=== PATIENT | male | born 2000 | race Caucasian/White ===

== ENCOUNTER 2018-01-25 20:09 | Emergency (ER) | payer BC ==
[~2018-01-25] VITALS: Ht 177.8 cm; Wt 82.6 kg
[2018-01-25 20:27] VITALS: BP 141/73; PULSE 130; TEMP 36.9; O2SAT 98; Ht 177.8 cm; Wt 82.6 kg
--- NOTE | 2018-01-25 21:10 | DIAGNOSTIC IMAGING REPORT ---
L KNEE 3 VIEWS CLINICAL HISTORY: left knee injury COMPARISON: None FINDINGS: Alignment of the left knee is anatomic. Irregularity of the tibial tubercle with a few associated calcific/ossific densities is chronic. There is a small left knee joint effusion. There is no acute fracture. IMPRESSION: 1. No acute fracture. 2. Suspected small left knee joint effusion. 3. Irregularity of the tibial tubercle with a few adjacent calcific/ossific densities which is chronic. Electronically signed by: Rachid Blair M.D. 01/25/2018 9:08 PM Dictated Date/Time: 01/25/2018 9:08 PM
--- NOTE | 2018-01-25 21:47 | EMERGENCY ROOM VISIT NOTE ---
History First contact with patient: 20:33 Chief Complaint: KNEEPAIN Stated Complaint: CANNOT PUT PRESSURE ON KNEE, SWELLING, HEARD POP History of Present Illness The patient is a 17 year old male who presents to the Emergency Room with complaints of pain in his left knee. The patient reports that he was playing volleyball and landed from a jump while twisting his left knee outward. He states that he heard a pop in his knee and had a sudden pain in the knee. The knee began to swell approximately 30 minutes afterward. He has been unable to bear weight on the left leg since then. He reports a history of a right knee dislocation, but denies any history of issues with the left knee. He reports pain with any movement of the knee. He used ice and an Víctor wrap prior to coming to the ER. He rates his discomfort a 4/10 and states it is dull and aching in nature. Review of Systems A complete 6 point review of systems was reviewed with the patient with pertinent positives and negatives as per history of present illness. All else were negative. Past Medical/Surgical History Medical Problems: (1) No significant active problems Social History Smoking Status: Never Smoker Alcohol Use: occasionally Housing Status: lives with roommate Occupation Status: [employer] student Physical Exam Vital Signs Date Time Temp Pulse Resp B/P (MAP) Pulse Ox O2 Delivery O2 Flow Rate FiO2 01/25/18 20:27 36.9 130 16 141/73 98 Room Air Physical Exam VITALS: Vitals are noted on the nurse's note and reviewed by myself. Vital signs stable. GENERAL: This is a 17-year-old male, in no acute distress, nondiaphoretic, well- developed well-nourished. MUSCULOSKELETAL: No obvious deformities. There is mild swelling noted to the left knee. Full passive range of motion. No laxity with valgus or varus stressing. Negative anterior/posterior drawer. NEURO: Patient was alert and oriented to person place and time. Medical Decision & Procedures ER Provider Diagnostic Interpretation: L KNEE 3 VIEWS CLINICAL HISTORY: left knee injury COMPARISON: None FINDINGS: Alignment of the left knee is anatomic. Irregularity of the tibial tubercle with a few associated calcific/ossific densities is chronic. There is a small left knee joint effusion. There is no acute fracture. IMPRESSION: 1. No acute fracture. 2. Suspected small left knee joint effusion. 3. Irregularity of the tibial tubercle with a few adjacent calcific/ossific densities which is chronic. Medical Decision Differential diagnosis includes knee sprain, fracture, contusion, ligamentous injury, dislocation, among others. The patient was evaluated as above. X-ray of the knee was obtained and read by radiology and shows a small effusion but no other acute findings. Patient was placed in a knee immobilizer and crutches. Conservative measures were discussed. He was given information for orthopedic follow-up. He verbalized understanding of my assessment and treatment plan and was discharged home in good condition. Blood Pressure Screening Patient's blood pressure: Elevated blood pressure Blood pressure disposition: Elevated BP felt to be situational Impression Primary Impression: Left knee injury Departure Information Dispostion Home / Self-Care Condition GOOD Referrals [facility] (PCP) Nabeel Lambert, DO Patient Instructions [facility] Additional Instructions You have been treated in the Emergency Department for Knee Pain. For pain control, you can use the following [id number] medicines (if >12 yo): - Regular strength (325mg/tab) Tylenol (acetaminophen) 2 tabs every 4-6 hours as needed. Do not exceed 12 tablets in a 24 hour period. Avoid taking more than 4 grams (4000 mg) of Tylenol per day. This includes any other sources of acetaminophen you may take on a regular basis. - Regular strength (200 mg/tab) Advil (ibuprofen) 1-2 tabs every 4-6 hours as needed. Do not exceed a dose of 3200 mg per day. If this is a recent injury (<24 hrs), ice can be applied to the area of pain for the first 3 days to help decrease pain and inflammation. Ice massages can be performed by freezing water in a paper cup, peeling back the cup to expose the ice and then massaging over the affected area. You have been provided the number for an Orthopaedic Surgeon. You should call this number as soon as possible to establish a follow-up visit from today's Emergency Department visit. Keep the knee brace in place until cleared by Orthopedics. Use the crutches you have been provided to keep ALL weight off of the knee until weight bearing is tolerable. Return to the Emergency Department if your current symptoms worsen despite treatment course outlined above.
== END 2018-01-25 21:47 | disposition home or self-care (01) ==
LOC: C.EDB 20:11 → C.EDD 21:47
DX: S89.92XA Unspecified injury of left lower leg, initial encounter (principal); X50.1XXA Overexertion from prolonged static or awkward postures, initial encounter; Y93.68 Activity, volleyball (beach) (court)

== ENCOUNTER → 2018-02-01 | Outpatient (CLI) | payer BC ==
--- NOTE | 2018-02-01 16:15 | DIAGNOSTIC IMAGING REPORT ---
MRI OF THE LEFT KNEE CLINICAL HISTORY: Left knee twisting injury one week ago. COMPARISON STUDY: Radiographs of left knee dated 01/25/2018. TECHNIQUE: MRI of the left knee was performed utilizing proton density, T1, and T2-weighted sequences in the axial, sagittal, coronal planes. IV contrast was not administered for this examination. FINDINGS: Menisci: There is a bucket-handle type tear involving the body and posterior horn of the lateral meniscus. The fragment is flipped centrally into the joint space. The medial meniscus appears intact. Ligaments: There has been rupture of the anterior cruciate ligament. The posterior cruciate ligament is intact. There is high-grade tearing of the medial collateral ligament which appears irregular. The inferior aspect of the ligaments may be completely torn. The lateral collateral ligament complex appears preserved. Extensor mechanism: The extensor mechanism is intact. There is bony overgrowth at the anterior tibial tuberosity. Increased signal at the insertion of the patellar tendon is likely chronic. Hoffa's fat pad is normal in appearance. Articular cartilage and bone: The articular cartilage is intact and well maintained all 3 compartments. Bony contusions identified within the lateral femoral condyle and the posterolateral tibial plateau. Bony contusion is also seen within the posteromedial tibial plateau. Joint effusion: There is a moderate joint effusion. Soft tissues: Soft tissue edema transcutaneous fluid is present around the knee, greatest medially. There is increased signal and thickening of the popliteus tendon suggesting at least partial thickness tear. The musculature surrounding the knee joint is normal in bulk and signal intensity. IMPRESSION: 1. Rupture of the anterior cruciate ligament. 2. There is a bucket-handle type tear involving the body and posterior horn of the lateral meniscus. The fragment is flipped centrally into the joint space. 3. There high-grade and possibly full-thickness tearing involving the inferior aspect of the medial collateral ligament. 4. There is increased signal involving the popliteus tendon, likely represent partial thickness tearing. This raises concern for a posterolateral corner injury. 5. The posterior cruciate ligament, the medial meniscus, and the lateral collateral ligament complex appear intact. 6. Bony contusions as above. 7. Joint effusion and soft tissue edema. Electronically signed by: Jv Luciano M.D. 02/01/2018 4:14 PM Dictated Date/Time: 02/01/2018 4:01 PM
== END | disposition home or self-care (01) ==
LOC: C.MRIBC 14:54
PROVIDERS: ATTEND Orthopaedic Surgery
DX: M25.562 Pain in left knee (principal)